=== PATIENT | female | born 1975 | race Caucasian/White ===

== ENCOUNTER 2017-03-30 18:02 | Emergency (ER) | payer MEDICARE, OTHER ==
[~2017-03-30 18:02] MED LIST: ATIVAN PO; ATORVASTATIN CA10 MG; FLEXERIL PO; IBUPROFEN IB100 MG; K-DUR20 ME2 PO; LIPITOR PO; LORTAB 5/500 TA1 TA2; LORTAB 7.5-5001 TAB PO; MORPHINE SULFAT10 M1; MORPHINE SULFAT15 MG PO; NABUMETONE PO; NEURONTIN PO; NEXIUM PO; ORUDIS75 M1 PO; PERCOCET PO; PHENERGAN PO; PHENERGAN25 MG PO; PREDNISONE PO; PREDNISONE5 M1; PRILOSEC20 MG PO; SKELAXIN PO; SYNTHROID PO; TOPAMAX PO; VICODIN PO; ZOFRAN ODT4 MG PO
[2017-03-30] MEDS ORDERED: HYDROCODON-ACE1 EAC9 (18:07)
== END 2017-03-30 19:23 | disposition home or self-care (01) ==
LOC: SED 18:02
DX: L02.214 Cutaneous abscess of groin (principal); E78.5 Hyperlipidemia, unspecified; G43.909 Migraine, unspecified, not intractable, without status migrainosus; D64.9 Anemia, unspecified; Z90.49 Acquired absence of other specified parts of digestive tract; Z98.51 Tubal ligation status; F17.210 Nicotine dependence, cigarettes, uncomplicated; Z23 Encounter for immunization
CPT/HCPCS: 90471; 90715; 99283